=== PATIENT | male | born 1960 ===

== ENCOUNTER 2017-07-27 08:38 | Inpatient (IN) ==
[2017-07-17 10:05] LABS: Basophils % 0.1 % (0.0-0.8); Eosinophils # 0.1 10*3/uL (0.0-0.87); Eosinophils % 0.9 % (0.00-10.9); Hematocrit 44.3 VOL% (42.0-52.0); Hemoglobin 15.2 GM/DL (14.0-18.0); Immature Granulocytes % 0.3 %; Immature Granulocytes Absolute 0.02 #; Lymphocytes # 2.4 10*3/uL (1.4-4.0); Mean Corpuscular HGB Conc 34.3 GM/DL (32-36); Mean Corpuscular Hemoglobin 34 PG (27-34); Mean Corpuscular Volume 97.6 FL (87-102); Mean Platelet Volume 11.7 FL (9.6-12.0); Monocytes # 0.5 10*3/uL (0.11-0.8); Monocytes % 7.9 % (1.7-12.7); Neutrophils # 3.7 10*3/uL (1.4-7.4); Neutrophils % 54.8 % (38.7-73.9); Platelet Count 137 T/CUMM (130-400); Red Blood Count 4.54 MC/CUMM (3.8-5.5); Red Cell Distribution Width 14.2 % (9.3-17.3); White Blood Count 6.7 T/CUMM (4-12)
[2017-07-17 10:58] LABS: Albumin 3.7 G/DL (3.4-5.0); Bilirubin,Total 0.6 MG/DL (0.2-1.0); Calcium 8.9 MG/DL (8.5-10.1); Osmolality,Calculated 282.3 MOS/KG (273-304); Potassium 4.2 MMOL/L (3.5-5.1); Total Protein 8.2 G/DL (6.4-8.3)
[~2017-07-27 08:38] MED LIST: ALVIMOPAN 12 MG CAPSULE ONE; cefOXitin 1,000 MG in SYRINGE 1 EACH IV ONE
[2017-07-27] MEDS ORDERED: ALVIMOPAN 12 MG CAPSULE PO ONE (09:00)
[2017-07-27] MEDS ORDERED: FAMOTIDINE 20 MG TABLET PO ONE (09:21)
[2017-07-27] MEDS ORDERED: DIAZEPAM 5 MG TABLET PO ONE (09:21)
[2017-07-27] MEDS: LACTATED RINGERS 1,000 ML IV SCH (10:10)
[2017-07-27] MEDS ORDERED: FAMOTIDINE 20 MG TABLET ONE (10:12)
[2017-07-27] MEDS ORDERED: DIAZEPAM 5 MG TABLET ONE (10:12)
[2017-07-27] MEDS ORDERED: TISSUE ADHESIVE 1 EACH APPLICATOR TOP ONE (11:28)
[2017-07-27] MEDS ORDERED: BUPIVACAINE MPF 0.25% /EPI 30 ML VIAL ONE (11:29)
[2017-07-27] MEDS ORDERED: LIDOCAINE 1%/EPI INJ 20 ML VIAL ONE (11:29)
[2017-07-27] MEDS ORDERED: ONDANSETRON 4 MG/2 ML VIAL IV PRN ×2 (12:57→18:19)
[2017-07-27] MEDS ORDERED: LIDOCAINE 2% 5 ML VIAL ONE (13:18)
[2017-07-27] MEDS ORDERED: PROPOFOL 200 MG/20 ML VIAL IV ONE ×2 (13:18→18:34)
[2017-07-27] MEDS ORDERED: SUGAMMADEX 200 MG/2 ML VIAL IV ONE (17:53)
[2017-07-27] MEDS ORDERED: MEPERIDINE 25 MG/1 ML VIAL IV PRN (18:19)
[2017-07-27] MEDS ORDERED: MORPHINE 10 MG/1 ML VIAL IV PRN (18:19)
[2017-07-27] MEDS ORDERED: MIDAZOLAM 2 MG/2 ML VIAL ONE (18:34)
[2017-07-27] MEDS ORDERED: SEVOFLURANE 1 UNIT/15 MINUTE INH ONE (18:34)
[2017-07-27] MEDS ORDERED: ACETAMINOPHEN 1,000 MG/100 ML VIAL IV ONE (18:35)
[2017-07-27] MEDS ORDERED: ROCURONIUM 100 MG/10 ML VIAL IV ONE (18:35)
[2017-07-27] MEDS ORDERED: DEXAMETHASONE 10 MG/1 ML VIAL ONE (18:35)
[2017-07-27] MEDS ORDERED: LACTATED RINGERS 3,000 ML IV ONE (18:35)
[2017-07-27] MEDS ORDERED: fentaNYL 100 MCG/2 ML VIAL ONE (18:35)
[2017-07-27 18:44] LABS: Apearance,Urine CLEAR (Clear); Bilirubin,Urine Negative (Negative); Blood, Urine Negative (Negative); Glucose,Urine (UA) Negative (Negative); Ketones,Urine Negative (Negative); Mucus,Urine Occasional /LPF (Occasional); Nitrite,Urine Negative (Negative); Protein,Urine Negative; Urine Color Yellow (Yellow); Urine Urobilinogen < 2.0 EU/DL (0.2-1.0); WBC,Urine 1 /HPF (0-6)
[2017-07-27 18:48] LABS: Hematocrit 39.3 VOL% (42.0-52.0); Hemoglobin 13.3 GM/DL (14.0-18.0)
[2017-07-27] MEDS: DEXTROSE 5% LACTATED RINGERS 1,000 ML IV SCH (20:55)
[2017-07-27] MEDS: cefOXitin 2,000 MG in SYRINGE 1 EACH IV SCH (23:01)
[2017-07-28 02:23] LABS: Basophils % 0.1 % (0.0-0.8); Hematocrit 39.9 VOL% (42.0-52.0); Hemoglobin 13.7 GM/DL (14.0-18.0); Immature Granulocytes % 0.6 %; Immature Granulocytes Absolute 0.05 #; Lymphocytes % 11.1 % (21.2-54.2); Mean Corpuscular HGB Conc 34.3 GM/DL (32-36); Mean Corpuscular Hemoglobin 34 PG (27-34); Mean Corpuscular Volume 98.5 FL (87-102); Mean Platelet Volume 11.9 FL (9.6-12.0); Monocytes # 0.3 10*3/uL (0.11-0.8); Monocytes % 2.9 % (1.7-12.7); Neutrophils # 7.3 10*3/uL (1.4-7.4); Neutrophils % 85.3 % (38.7-73.9); Platelet Count 127 T/CUMM (130-400); Red Blood Count 4.05 MC/CUMM (3.8-5.5); Red Cell Distribution Width 13.3 % (9.3-17.3); White Blood Count 8.6 T/CUMM (4-12)
[2017-07-28 02:34] LABS: Calcium 7.9 MG/DL (8.5-10.1); Osmolality,Calculated 279.7 MOS/KG (273-304); Potassium 3.9 MMOL/L (3.5-5.1)
[2017-07-28] MEDS: MORPHINE 4 MG/1 ML VIAL IV PRN (02:52)
[2017-07-28] MEDS: cefOXitin 2,000 MG in SYRINGE 1 EACH IV SCH ×4 (03:00→21:43)
[2017-07-28] MEDS: DEXTROSE 5% LACTATED RINGERS 1,000 ML IV SCH ×4 (04:32→23:44)
[2017-07-28] MEDS: PANTOPRAZOLE 40 MG TABLET PO SCH (09:19)
[2017-07-28] MEDS: ENOXAPARIN 40 MG/0.4 ML SYRINGE SUBCUT SCH (09:22)
[2017-07-28 10:21] LABS: Hematocrit 39.1 VOL% (42.0-52.0); Hemoglobin 13.8 GM/DL (14.0-18.0)
[2017-07-28] MEDS: LACTATED RINGERS 1,000 ML IV SCH (12:38)
[2017-07-29] MEDS: cefOXitin 2,000 MG in SYRINGE 1 EACH IV SCH ×4 (04:28→21:14)
[2017-07-29] MEDS: DEXTROSE 5% LACTATED RINGERS 1,000 ML IV SCH ×3 (07:35→21:21)
[2017-07-29] MEDS: PANTOPRAZOLE 40 MG TABLET PO SCH ×2 (07:47→11:38)
[2017-07-29] MEDS: ENOXAPARIN 40 MG/0.4 ML SYRINGE SUBCUT SCH ×2 (07:48→11:38)
[2017-07-29] MEDS: MORPHINE 4 MG/1 ML VIAL IV PRN (21:12)
[2017-07-30] MEDS: DEXTROSE 5% LACTATED RINGERS 1,000 ML IV SCH ×3 (03:13→20:28)
[2017-07-30] MEDS: cefOXitin 2,000 MG in SYRINGE 1 EACH IV SCH ×4 (03:31→22:31)
[2017-07-30] MEDS: ENOXAPARIN 40 MG/0.4 ML SYRINGE SUBCUT SCH (10:28)
[2017-07-30 11:31] LABS: Calcium 8.2 MG/DL (8.5-10.1); Osmolality,Calculated 278.5 MOS/KG (273-304); Potassium 3.6 MMOL/L (3.5-5.1)
[2017-07-30 12:33] LABS: Basophils % 0.1 % (0.0-0.8); Eosinophils % 0.1 % (0.00-10.9); Hematocrit 41.1 VOL% (42.0-52.0); Hemoglobin 14.2 GM/DL (14.0-18.0); Immature Granulocytes % 0.7 %; Immature Granulocytes Absolute 0.08 #; Lymphocytes # 1.6 10*3/uL (1.4-4.0); Lymphocytes % 14.3 % (21.2-54.2); Mean Corpuscular HGB Conc 34.5 GM/DL (32-36); Mean Corpuscular Hemoglobin 34 PG (27-34); Mean Corpuscular Volume 97.2 FL (87-102); Mean Platelet Volume 11.3 FL (9.6-12.0); Monocytes # 0.8 10*3/uL (0.11-0.8); Monocytes % 7.5 % (1.7-12.7); Neutrophils # 8.4 10*3/uL (1.4-7.4); Neutrophils % 77.3 % (38.7-73.9); Platelet Count 149 T/CUMM (130-400); Red Blood Count 4.23 MC/CUMM (3.8-5.5); Red Cell Distribution Width 13.2 % (9.3-17.3); White Blood Count 10.8 T/CUMM (4-12)
[2017-07-30] MEDS: PANTOPRAZOLE 40 MG TABLET PO SCH (13:31)
[2017-07-31] MEDS: DEXTROSE 5% LACTATED RINGERS 1,000 ML IV SCH ×3 (02:24→09:04)
[2017-07-31 05:52] LABS: Basophils % 0.1 % (0.0-0.8); Eosinophils # 0.1 10*3/uL (0.0-0.87); Eosinophils % 1.2 % (0.00-10.9); Hematocrit 38.4 VOL% (42.0-52.0); Hemoglobin 13.7 GM/DL (14.0-18.0); Immature Granulocytes % 0.3 %; Immature Granulocytes Absolute 0.03 #; Lymphocytes # 2.1 10*3/uL (1.4-4.0); Lymphocytes % 20.6 % (21.2-54.2); Mean Corpuscular HGB Conc 35.7 GM/DL (32-36); Mean Corpuscular Hemoglobin 34 PG (27-34); Mean Corpuscular Volume 95.5 FL (87-102); Mean Platelet Volume 11.4 FL (9.6-12.0); Monocytes # 0.9 10*3/uL (0.11-0.8); Monocytes % 8.6 % (1.7-12.7); Neutrophils # 7.1 10*3/uL (1.4-7.4); Neutrophils % 69.2 % (38.7-73.9); Platelet Count 154 T/CUMM (130-400); Red Blood Count 4.02 MC/CUMM (3.8-5.5); Red Cell Distribution Width 13.2 % (9.3-17.3); White Blood Count 10.2 T/CUMM (4-12)
[2017-07-31 06:03] LABS: Calcium 8.1 MG/DL (8.5-10.1); Osmolality,Calculated 275.8 MOS/KG (273-304); Potassium 3.6 MMOL/L (3.5-5.1)
[2017-07-31] MEDS: cefOXitin 2,000 MG in SYRINGE 1 EACH IV SCH ×4 (06:18→21:30)
[2017-07-31] MEDS: ENOXAPARIN 40 MG/0.4 ML SYRINGE SUBCUT SCH (09:06)
[2017-07-31] MEDS: PANTOPRAZOLE 40 MG TABLET PO SCH (09:06)
[2017-08-01] MEDS: cefOXitin 2,000 MG in SYRINGE 1 EACH IV SCH ×4 (03:20→21:20)
[2017-08-01 04:36] LABS: Basophils % 0.2 % (0.0-0.8); Eosinophils # 0.2 10*3/uL (0.0-0.87); Eosinophils % 2.3 % (0.00-10.9); Hematocrit 38.7 VOL% (42.0-52.0); Hemoglobin 13.9 GM/DL (14.0-18.0); Immature Granulocytes % 0.9 %; Immature Granulocytes Absolute 0.08 #; Lymphocytes # 1.8 10*3/uL (1.4-4.0); Lymphocytes % 20.8 % (21.2-54.2); Mean Corpuscular HGB Conc 35.9 GM/DL (32-36); Mean Corpuscular Hemoglobin 34 PG (27-34); Mean Corpuscular Volume 95.1 FL (87-102); Mean Platelet Volume 11.9 FL (9.6-12.0); Monocytes # 0.7 10*3/uL (0.11-0.8); Monocytes % 7.3 % (1.7-12.7); Neutrophils # 6.1 10*3/uL (1.4-7.4); Neutrophils % 68.5 % (38.7-73.9); Platelet Count 170 T/CUMM (130-400); Red Blood Count 4.07 MC/CUMM (3.8-5.5); Red Cell Distribution Width 13.1 % (9.3-17.3); White Blood Count 8.9 T/CUMM (4-12)
[2017-08-01 05:02] LABS: Osmolality,Calculated 275.7 MOS/KG (273-304); Potassium 3.3 MMOL/L (3.5-5.1)
[2017-08-01] MEDS: DEXTROSE 5% LACTATED RINGERS 1,000 ML IV SCH (05:43)
[2017-08-01] MEDS: ENOXAPARIN 40 MG/0.4 ML SYRINGE SUBCUT SCH (10:26)
[2017-08-01] MEDS: PANTOPRAZOLE 40 MG TABLET PO SCH (10:26)
[2017-08-01] MEDS: POTASSIUM CHLORIDE 20 MEQ TABLET PO PRN ×3 (18:01→23:05)
[2017-08-02] MEDS: cefOXitin 2,000 MG in SYRINGE 1 EACH IV SCH ×2 (03:25→09:36)
[2017-08-02 08:09] VITALS: BP 127/84
[2017-08-02] MEDS: ENOXAPARIN 40 MG/0.4 ML SYRINGE SUBCUT SCH (09:38)
[2017-08-02] MEDS: PANTOPRAZOLE 40 MG TABLET PO SCH (09:38)
[2017-08-02] MEDS: POTASSIUM CHLORIDE 20 MEQ TABLET PO PRN ×2 (09:41→12:25)
== END 2017-08-02 12:45 | disposition home or self-care (01) | DRG 330 ==
LOC: N.OR 08:38 → N.3E 08:38 → N.SDSINP 08:40 → N.GILAB 12:48 → N.3E 17:56
PROVIDERS: ADMIT Surgery; ATTEND Surgery